=== PATIENT | male | born 1965 | race Two or more races ===

== ENCOUNTER 2018-06-26 07:29 | Day surgery (SDC) | payer OTHER ==
[2018-06-26] MEDS ORDERED: PROPOFOL 20 ML (08:58)
[2018-06-26] MEDS ORDERED: FENTAnyl 50 MCG/ML VIAL (08:58)
== END 2018-06-26 11:29 | disposition home or self-care (01) ==
LOC: GIL 07:29
DX: Z12.11 Encounter for screening for malignant neoplasm of colon (principal); K62.1 Rectal polyp; K64.8 Other hemorrhoids; E78.5 Hyperlipidemia, unspecified; E66.9 Obesity, unspecified; Z68.38 Body mass index [BMI] 38.0-38.9, adult
CPT/HCPCS: 45380; 88305